=== PATIENT | male | born 1955 | race Caucasian/White ===

== ENCOUNTER → 2020-01-15 | Outpatient (CLI) | payer OTHER ==
[~2020-01-15] MED LIST: SIMV20TA18 PO
--- NOTE | 2020-01-16 14:00 | KCIC ---
4 views the cervical spine without comparison for indication unspecified. FINDINGS: There is no fracture or acute osseous or alignment abnormality identified. There is straightening of the normal cervical lordosis. There is severe narrowing of the C5-6 and C6-7 intervertebral disc spaces, with small posterior bulky anterior osteophytes. Prevertebral soft tissues are unremarkable. Atlantoaxial articulation is intact. IMPRESSION: 1. No acute osseous or alignment abnormality of cervical spine. 2. Multilevel degenerative changes as described. MTDD
== END ==
LOC: KCIC 10:52
PROVIDERS: ATTEND Family Medicine
DX: M47.812 Spondylosis without myelopathy or radiculopathy, cervical region (principal); M48.02 Spinal stenosis, cervical region
CPT/HCPCS: 72040

== ENCOUNTER → 2020-02-01 | Outpatient (CLI) | payer OTHER ==
--- NOTE | 2020-02-01 13:34 | RAD ---
Bilateral lower extremity ABIs without comparison for her loss on the legs. FINDINGS: The CHICO on the right is 1.1 and CHICO on the left is 1.2. These are normal. IMPRESSION: 1. Normal bilateral lower extremity ABIs. Electronically signed by: Drew Stoddard MD (02/01/2020 1:02 PM) [id number]
== END ==
LOC: US 10:56
PROVIDERS: ATTEND Family Medicine
DX: L65.8 Other specified nonscarring hair loss (principal)
CPT/HCPCS: 93922